=== PATIENT | female | born 1990 | race Caucasian/White ===

== ENCOUNTER 2019-06-02 16:43 | Inpatient (IN) | payer OTHER ==
[~2019-06-02] VITALS: Ht 162.6 cm; Wt 94.3 kg
[2019-06-02 17:23] VITALS: BP 119/64
[2019-06-02] MEDS ORDERED: RINGERS SOLUTION,LACTATED 1,000 ML IV PRN (17:37)
[2019-06-02] MEDS ORDERED: OXYTOCIN 30 UNITS/LACT RINGERS 500 ML IV ONE (17:37)
[2019-06-02] MEDS ORDERED: RINGERS SOLUTION,LACTATED 1,000 ML IV SCH (17:37)
[2019-06-02] MEDS ORDERED: RINGERS SOLUTION,LACTATED 1,000 ML IV ONE (17:42)
[2019-06-02] MEDS ORDERED: MISOPROSTOL 25 MCG TABLET VG SCH (17:45)
[2019-06-02] MEDS ORDERED: METOCLOPRAMIDE HCL 5 MG/ML 2 ML VIAL IVP PRN (17:45)
[2019-06-02] MEDS ORDERED: MISOPROSTOL 50 MCG TABLET PO SCH (17:45)
[2019-06-02] MEDS ORDERED: CITRIC ACID/SODIUM CITRATE 30 ML SOLUTION UDCUP PO PRN (17:45)
[2019-06-02] MEDS ORDERED: LIDOCAINE/PF 1% 30 ML VIAL INJ PRN (17:45)
[2019-06-02] MEDS ORDERED: METHYLERGONOVINE MALEATE 0.2 MG/ML VIAL IM PRN (17:45)
[2019-06-02] MEDS ORDERED: TERBUTALINE SULFATE 1 MG/ML VIAL SQ PRN (17:45)
[2019-06-02] MEDS ORDERED: PNV1TABL89 PO (17:48)
[2019-06-02 17:58] LABS: GLUCOMETER DEV NAME(LOC) 4S.; GLUCOSE,POINT OF CARE 76 MG/DL (70-110)
[2019-06-02 18:13] LABS: BASOPHILS % (AUTO) 0.8 % (0.0-2.0); HEMATOCRIT 39.7 % (36-46); LYMPHOCYTES # (AUTO) 1.8 K/uL (1.0-4.8); LYMPHOCYTES % (AUTO) 20.3 % (22.0-44.0); MEAN CORPUSCULAR HEMOGLOBIN 27.7 pg (26.0-34.0); MEAN CORPUSCULAR HGB CONC 32.8 G/dL (31.0-37.0); MEAN CORPUSCULAR VOLUME 85 fL (80-100); MONOCYTES # (AUTO) 0.4 K/uL (0.1-1.0); MONOCYTES % (AUTO) 4.6 % (2.0-9.0); NEUTROPHILS # (AUTO) 6.4 K/uL (1.8-7.7); NEUTROPHILS % (AUTO) 73.3 % (40.0-70.0); PLATELET COUNT (AUTO)-OB 226 K/uL (150-450); RED BLOOD CELL COUNT(AUTO) 4.69 MIL/uL (4.00-5.20); RED CELL DISTRIBUTION WIDTH 14.2 % (11.5-14.5)
[2019-06-02] MEDS ORDERED: OXYGEN THERAPY IH SCH (20:00)
[2019-06-02 20:19] LABS: GLUCOMETER DEV NAME(LOC) 4S.; GLUCOSE,POINT OF CARE 78 MG/DL (70-110)
[2019-06-02] MEDS: RINGERS SOLUTION,LACTATED 1,000 ML IV SCH (23:57)
[2019-06-03] MEDS: MISOPROSTOL 25 MCG TABLET VG SCH ×3 (00:14→08:49)
[2019-06-03 02:08] LABS: GLUCOMETER DEV NAME(LOC) 4S.; GLUCOSE,POINT OF CARE 76 MG/DL (70-110)
[2019-06-03] MEDS: RINGERS SOLUTION,LACTATED 1,000 ML IV SCH ×3 (07:27→23:32)
[2019-06-03 08:15] LABS: GLUCOMETER DEV NAME(LOC) 4S.; GLUCOSE,POINT OF CARE 69 MG/DL (70-110)
[2019-06-03] MEDS: MISOPROSTOL 50 MCG TABLET PO SCH ×2 (13:47→18:02)
[2019-06-03 14:21] LABS: GLUCOMETER DEV NAME(LOC) 4S.; GLUCOSE,POINT OF CARE 110 MG/DL (70-110)
[2019-06-03] MEDS ORDERED: DINOPROSTONE 10 MG VAGINAL SUPPOSITORY VG ONE (22:15)
[2019-06-04] MEDS: FentaNYL CITRATE-PF 100 MCG/2 ML VIAL IVP PRN ×4 (03:54→08:01)
[2019-06-04] MEDS ORDERED: RINGERS SOLUTION,LACTATED 1,000 ML IV ONE ×2 (08:19→11:46)
[2019-06-04] MEDS: RINGERS SOLUTION,LACTATED 1,000 ML IV SCH ×2 (08:25→20:51)
[2019-06-04] MEDS ORDERED: -PHARMACY NOTE- MISC ONE (10:15)
[2019-06-04] MEDS ORDERED: ACETAMINOPHEN 1000 MG/ISO-OSM 100 ML IV ONE (11:22)
[2019-06-04] MEDS ORDERED: BUPIVACAINE HCL/DEX-WATER/PF 0.75% 2 ML AMP ONE (11:22)
[2019-06-04] MEDS ORDERED: MORPHINE SULFATE/PF 0.5 MG/ML 10 ML AMP ONE (11:22)
[2019-06-04] MEDS ORDERED: FentaNYL CITRATE-PF 100 MCG/2 ML VIAL ONE (11:22)
[2019-06-04] MEDS ORDERED: METOCLOPRAMIDE HCL 5 MG/ML 2 ML VIAL IVP ONE (12:00)
[2019-06-04] MEDS ORDERED: CITRIC ACID/SODIUM CITRATE 30 ML SOLUTION UDCUP PO ONE (12:00)
[2019-06-04] MEDS ORDERED: MORPHINE SULFATE 10 MG/ML SYRINGE IVP PRN (12:45)
[2019-06-04] MEDS ORDERED: ONDANSETRON HCL 4 MG/2 ML VIAL IVP PRN ×2 (12:45)
[2019-06-04] MEDS ORDERED: NALOXONE HCL 0.4 MG/ML VIAL IVP PRN (12:45)
[2019-06-04] MEDS ORDERED: FentaNYL CITRATE-PF 100 MCG/2 ML VIAL IVP PRN (12:45)
[2019-06-04] MEDS ORDERED: DEXAMETHASONE SOD PHOS 4 MG/ML VIAL IVP PRN (12:45)
[2019-06-04] MEDS ORDERED: DiphenhydrAMINE HCL 50 MG/ML VIAL IVP PRN ×2 (12:45)
[2019-06-04] MEDS ORDERED: OXYTOCIN 30 UNITS/LACT RINGERS 500 ML IV ONE (15:53)
[2019-06-04] MEDS ORDERED: LANOLIN 7 GM OINTMENT TP PRN (16:00)
[2019-06-04] MEDS ORDERED: OXYGEN THERAPY IH SCH ×3 (20:00)
[2019-06-04] MEDS: ACETAMINOPHEN 1000 MG/ISO-OSM 100 ML IV SCH (20:50)
[2019-06-04] MEDS: MAGNESIUM HYDROXIDE SUSPENSION 30 ML UDCUP PO SCH (20:50)
[2019-06-05] MEDS: ACETAMINOPHEN 1000 MG/ISO-OSM 100 ML IV SCH (03:54)
[2019-06-05] MEDS: RINGERS SOLUTION,LACTATED 1,000 ML IV SCH (03:55)
[2019-06-05] MEDS ORDERED: EPHEDrine SULFATE 50 MG/ML VIAL IM ONE (05:32)
[2019-06-05] MEDS ORDERED: 0.9% SODIUM CHLORIDE 10 ML VIAL IVP ONE (05:32)
[2019-06-05] MEDS ORDERED: OXYTOCIN 10 UNITS/ML VIAL IM ONE (05:32)
[2019-06-05 06:18] LABS: BASOPHILS % (AUTO) 0.3 % (0.0-2.0); HEMATOCRIT 32.9 % (36-46); HEMOGLOBIN 11.3 g/dL (12.0-16.0); LYMPHOCYTES # (AUTO) 1.3 K/uL (1.0-4.8); LYMPHOCYTES % (AUTO) 12.5 % (22.0-44.0); MEAN CORPUSCULAR HEMOGLOBIN 29.1 pg (26.0-34.0); MEAN CORPUSCULAR HGB CONC 34.4 G/dL (31.0-37.0); MEAN CORPUSCULAR VOLUME 85 fL (80-100); MONOCYTES # (AUTO) 0.5 K/uL (0.1-1.0); MONOCYTES % (AUTO) 4.8 % (2.0-9.0); NEUTROPHILS # (AUTO) 8.1 K/uL (1.8-7.7); NEUTROPHILS % (AUTO) 80.4 % (40.0-70.0); PLATELET COUNT (AUTO)-OB 169 K/uL (150-450); RED BLOOD CELL COUNT(AUTO) 3.89 MIL/uL (4.00-5.20); RED CELL DISTRIBUTION WIDTH 14.4 % (11.5-14.5)
[2019-06-05] MEDS: MAGNESIUM HYDROXIDE SUSPENSION 30 ML UDCUP PO SCH (10:24)
[2019-06-05] MEDS ORDERED: OxyCODONE HCL/ACETAMINOPHEN 5-325 MG TABLET PO PRN ×4 (13:00→16:00)
[2019-06-05] MEDS ORDERED: IBUPROFEN 800 MG TABLET ONE (13:02)
[2019-06-05] MEDS: IBUPROFEN 800 MG TABLET PO PRN (13:04)
[2019-06-05] MEDS ORDERED: IBUPROFEN 800 MG TABLET PO PRN (16:00)
[2019-06-06] MEDS: IBUPROFEN 800 MG TABLET PO PRN ×3 (04:16→19:24)
[2019-06-06] MEDS: MAGNESIUM HYDROXIDE SUSPENSION 30 ML UDCUP PO SCH (20:20)
[2019-06-07] MEDS: IBUPROFEN 800 MG TABLET PO PRN ×2 (01:16→08:24)
[2019-06-07] MEDS: MAGNESIUM HYDROXIDE SUSPENSION 30 ML UDCUP PO SCH (08:24)
[2019-06-07] MEDS ORDERED: IBUP-2071 PO (09:17)
[2019-06-07] MEDS ORDERED: FERR-89 PO (09:18)
[2019-06-07] MEDS ORDERED: DOCU-275 PO (09:19)
== END 2019-06-07 10:30 | disposition home or self-care (01) | DRG 788 ==
LOC: OBSVTOIN 16:43 → 4S 16:43
PROVIDERS: ADMIT Obstetrics & Gynecology; ATTEND Obstetrics & Gynecology
PROC: 10D00Z1 Extraction of Products of Conception, Low, Open Approach (ICD-10-PCS; principal; 2019-06-04)
DX: O24.420 Gestational diabetes mellitus in childbirth, diet controlled (principal); O61.9 Failed induction of labor, unspecified; O62.0 Primary inadequate contractions; O76 Abnormality in fetal heart rate and rhythm complicating labor and delivery; Z3A.39 39 weeks gestation of pregnancy; Z37.0 Single live birth
CPT/HCPCS: 86850; 86900; 86901; 87081; J0131; J0690; J2274; J2590; J3010; J3490; J7120